=== PATIENT | male | born 1960 | race Caucasian/White ===

== ENCOUNTER → 2023-12-26 06:58 | Outpatient (REF) | payer BC, SELFPAY | LOC: MRI 06:58 | PROVIDERS: ATTENDING PHYSICIAN Physical Medicine & Rehabilitation; FAMILY PHYSICIAN Family Medicine | DX: S46.911A Strain of unspecified muscle, fascia and tendon at shoulder and upper arm level, right arm, initial encounter (principal) | CPT/HCPCS: 73221 ==

== ENCOUNTER → 2024-04-23 08:23 | Outpatient (REF) | payer BC, SELFPAY | LOC: RAD 08:23 | PROVIDERS: ATTENDING PHYSICIAN Neurological Surgery; FAMILY PHYSICIAN Family Medicine | DX: Z98.1 Arthrodesis status (principal) | CPT/HCPCS: 72100 ==

== ENCOUNTER → 2024-06-25 09:56 | Outpatient (REF) | payer BC, SELFPAY | LOC: RAD 09:56 | PROVIDERS: ATTENDING PHYSICIAN Neurological Surgery; FAMILY PHYSICIAN Family Medicine | DX: Z98.1 Arthrodesis status (principal) | CPT/HCPCS: 72110 ==

== ENCOUNTER → 2024-11-05 10:32 | Outpatient (REF) | payer BC, SELFPAY | LOC: RAD 10:32 | PROVIDERS: ATTENDING PHYSICIAN Neurological Surgery; FAMILY PHYSICIAN Family Medicine | DX: Z98.1 Arthrodesis status (principal) | CPT/HCPCS: 72114 ==

== ENCOUNTER → 2025-02-15 14:22 | Outpatient (REF) | payer OTHER, SELFPAY | LOC: HWRAD 14:22 | PROVIDERS: ATTENDING PHYSICIAN Family Medicine | DX: R10.11 Right upper quadrant pain (principal) | CPT/HCPCS: 76700 ==

== ENCOUNTER → 2025-04-10 18:03 | Outpatient (REF) | payer OTHER, SELFPAY | LOC: RAD 18:03 | PROVIDERS: ATTENDING PHYSICIAN Neurological Surgery; FAMILY PHYSICIAN Family Medicine | DX: Z98.1 Arthrodesis status (principal) | CPT/HCPCS: 72110 ==

== ENCOUNTER 2025-04-11 08:51 | Emergency (ER) | payer OTHER, SELFPAY ==
[2025-04-11 08:54] VITALS: BP 175/90
--- NOTE | 2025-04-11 11:13 | ED.GENMED ---
History of Present Illness
General
Chief Complaint: Back Pain
Time Seen by Provider: 04/11/25 10:36
History of Present Illness
History of Present Illness:
64-year-old male with history of diabetes, hyperlipidemia, asthma presenting to the emergency department for right sided back pain. Patient reports for the past several months has been having issues with his back, known history of severe spinal
stenosis and autoimmune neuropathy. He has been following with a surgeon at [place], recently had x-rays of his back. He has had 3 spinal fusions in the past. He was on the toilet prior to arrival and felt his back eval. He has since had
difficulty ambulating, notes severe pain on the right side of his back going into his gluteal region. Denies any new numbness or tingling. Denies any weakness. He did not take anything for pain prior to arrival. He notes that he usually takes
Tylenol and Motrin for pain. Denies any bowel or bladder issues. Denies any fever. Denies additional acute medical complaints
Past History
Past History
ED Past Medical History: HTN and NIDDM
ED Past Surgical History: Appendectomy, Urological and Other (Hernia repair)
Social History
Tobacco: Non-smoker
Phy Exam
Physical Exam
Physical Exam:
General: Well-appearing, no clinical signs of dehydration, nontoxic and in no acute distress
HEENT: protecting airway
Neck: appears supple
CV: Normal heart rate, regular rhythm
Resp: No accessory muscle use, no increased work of breathing
Abd: No distention
Extremities: No deformities, no swelling. Range of motion intact to the lower extremities. Distal sensation and pulses intact. Slight diminished sensation to lower extremities which patient reports is chronic, however symmetric. Reproducible
pain to the right gluteal region. No midline tenderness to the back
Neuro: alert, no focal neurologic deficit
: deferred
Rectal: deferred
Psych: Normal affect
Skin: Intact
Course
Orders/Labs/Results
Orders:
Orders
04/11/25 10:53
CT Lumbar Spine W/o Iv Contras Urgent
Reason For Exam: severe R-sided pain, hx fusions
Ketorolac [Toradol] 30 mg IV NOW STA
04/11/25 11:40
Complete Blood Count/With Diff Urgent
Comprehensive Metabolic Panel Urgent
04/11/25 11:45
Dexamethasone Sod Phosphate [Decadron] 10 mg IV NOW STA
Diazepam [Valium] 5 mg PO NOW STA
04/11/25 14:16
HYDROmorphone [Dilaudid] 0.5 mg IV NOW STA
04/11/25 15:17
Prednisone [Deltasone] 40 mg PO NOW STA
Abnormal Lab Results
04/11/25
11:40
Absolute Monos (auto) 0.7 H 10^3/uL
(0.1-0.6)
BUN 22 H mg/dl
(9-20)
Glucose 169 H mg/dl
(70-99)
04/11/25 11:40
04/11/25 11:40
Vital Signs
Initial and Last Documented VS:
Initial Vital Signs
Temp Pulse Resp BP Pulse Ox
98.3 F 85 16 175/90 98
04/11/25 08:54 04/11/25 08:54 04/11/25 08:54 04/11/25 08:54 04/11/25 08:54
Last Documented Vital Signs
Temp Pulse Resp BP Pulse Ox
98.3 F 69 16 146/74 99
04/11/25 08:54 04/11/25 14:00 04/11/25 14:00 04/11/25 14:00 04/11/25 14:00
MDM/Problems Addressed
MDM/Problems Addressed:
64-year-old male with history of severe spinal stenosis and chronic neuropathy presenting for acute on chronic back pain. Vital signs are significant for high blood pressure.
On exam, patient is in no acute distress, however does appear uncomfortable secondary to pain. Symptoms appear most consistent with sciatica versus disc herniation. Do not suspect any concerning etiology to patient's presenting symptoms. Do not
suspect any spinal fracture in the absence of any direct trauma, and no midline spinal tenderness. No fever, systemic symptoms, or midline tenderness, without concern for spinal abscess or infection. No red flag such as bowel or bladder
incontinence, focal weakness, or any sensory deficits on exam, without present concern for spinal compression. Will start with IV Toradol for pain control. X-rays obtained yesterday of the lumbar spine, show prior spinal fusions without obvious
fracture or malalignment. Given acute worsening of pain, we will proceed with CT imaging.
15:15 -CT without any significant acute abnormality. Patient's pain has improved. Offered admission for pain control versus pain control at home. He would prefer to go home to follow-up with his surgeon and outpatient MRI. Return precautions
discussed and patient verbalized understanding
*Pulse Oximetry
SaO2: 98
Oxygen Mode of Delivery: Room air
Patient hypoxic: no
*Critical Care Note
Total Time (30-74mins, 75-104mins- exclusive of procedures): Not Applicable
ED Attending Note
-
Portions of this chart may have been created with voice recognition software.� Occasional wrong word or��sound alike� substitutions may have occurred due to the inherent limitations of voice recognition software.
Discharge Plan
Departure
Patient Disposition: Home (Routine Discharge)
Date of Disposition: 04/11/25
Time of Disposition: 15:17
Patient with high blood pressure during this ER visit?: No
Condition: Good
Discharge Problem:
Acute lumbar back pain, Sciatic nerve palsy, right
Instructions: Low Back Pain (DC), Sciatica (DC)
Prescriptions:
New
prednisone 20 mg tablet
40 mg PO DAILY 5 Days Qty: 10 0RF
oxycodone-acetaminophen [Percocet] 5-325 mg tablet
1 tab PO Q8H PRN (Reason: Pain) Qty: 10 0RF
No Action
metformin 500 MG tablet
1,000 mg PO BID
omeprazole [Prilosec] 10 MG capsule,delayed release(DR/EC)
40 mg PO DAILYPRN PRN (Reason: reflux)
niacin 100 MG tablet
500 mg PO DAILY
albuterol sulfate 1 PUFF HFA aerosol inhaler
1 puff inhalation R Q4HPRN PRN (Reason: sob)
Patient Comments:
last used months ago
levothyroxine 50 MCG tablet
50 mcg PO DAILY
rosuvastatin 20 MG tablet
20 mg PO QPM
semaglutide [Ozempic] 1 MG/0.75 ML pen injector
1 mg SQ WEEKLY
vitamin B complex 1 TAB tablet
1 tab PO DAILY
cholecalciferol (vitamin D3) 2,000 UNIT tablet
2,000 unit PO DAILY
cetirizine 10 MG tablet
10 mg PO DAILYPRN PRN (Reason: allergies)
melatonin 10 MG tablet
20 mg PO HSPRN PRN (Reason: insomnia)
semaglutide [Rybelsus] 3 MG tablet
3 mg PO DAILY
sennosides [senna] 1 TABLET tablet
2 tab PO BID 0RF
docusate sodium 100 MG capsule
100 mg PO BID 0RF
oxycodone-acetaminophen [Percocet] 1 EACH tablet
0.5 - 1 tab PO Q6HPRN PRN (Reason: moderate-severe pain) Qty: 30 0RF
Rx Instructions:
1/2 tab for moderate pain, 1 tab if severe
dx lami
ongoing therapy
lorazepam 1 MG tablet
1 mg PO TIDPRN PRN (Reason: muscle spasms ) Qty: 20 0RF
Rx Instructions:
Caution with Percocet - can cause drowsiness.
Take only as needed and as directed
acetaminophen 325 MG tablet
650 mg PO Q4HPRN PRN (Reason: mild pain) Qty: 30 0RF
Rx Instructions:
Do not exceed >4000 mg daily while on Percocet.
1 Percocet tab = 325 mg of Tylenol.
phytonadione (vitamin K1) 100 MCG tablet
100 mcg PO DAILY Qty: 0 0RF
Rx Instructions:
Resume in 1 week.
docosahexaenoic acid-epa 1 CAP capsule
1 - 2 cap PO DAILY Qty: 0 0RF
Rx Instructions:
Resume in 1 week.
coenzyme Q10 50 MG tablet,chewable
100 mg PO DAILY Qty: 0 0RF
Rx Instructions:
Resume in 1 week.
Referrals:
Ozzy Mckeon MD [Family Provider, Family Practice]
Activity Restrictions/Additional Instructions:
You were seen in the emergency department for back pain
You had a CT scan of your lumbar spine which did not show any significant abnormality. We suspect possible disc herniation versus sciatica. We recommend that you follow-up with your spine doctor.
Please follow-up closely with your primary care physician.
Return to the emergency department for any worsening of your symptoms, or any development of chest pain, difficulty breathing, abdominal pain with persistent vomiting and inability to tolerate food or liquid by mouth (concern for dehydration),
weakness, headache or confusion, fever greater than 100.4, or any additional symptoms that are concerning to you.
Thank you for choosing [facility].
Interventions
Interventions:
*Risk Screen - Suicide Last Done: 04/11/25 08:55
*General Assessment Last Done: 04/11/25 11:30
*Neglect/Abuse Screening Last Done: 04/11/25 08:55
*ED- Fall Risk Assessment Last Done: 04/11/25 11:30
*ED COVID-19 Vaccine History Last Done: 04/11/25 11:30
*Nursing Disposition Last Done: 04/11/25 16:40
ED-Musculoskeletal Assessment Last Done: 04/11/25 11:30
Discharge Date and Time
Discharge Date/Time: 04/11/25 16:20
Print Language: MACEDONIAN
[2025-04-11 11:35] VITALS: BP 173/99
[2025-04-11] MEDS: TORADOL 30 MG IV (11:41)
[2025-04-11 11:53] LABS: % Basophils 0.9 % (0-2); % Eosinophils 3.2 % (0-6); % Immature Granulocytes 0.4 % (0-0.5); % Lymphocytes 23.7 % (20.5-51.1); % Monocytes 9.1 % (1.7-9.3); % Neutrophils 62.7 % (42.2-75.2); Absolute Basophils 0.1 10^3/uL (0-0.2); Absolute Eosinophils 0.3 10^3/uL (0-0.7); Absolute Lymphocytes 1.9 10^3/uL (1.2-3.4); Absolute Monocytes 0.7 10^3/uL (0.1-0.6); Hematocrit 47.6 % (39.0-52.0); Hemoglobin 16.1 g/dL (13.0-18.0); Mean Corp Hgb Conc. 33.8 g/dL (33.0-37.0); Mean Corpuscular Hgb 30.2 pg (27.0-31.0); Mean Corpuscular Volume 89.3 fL (80.0-94.0); Mean Platelet Volume 9.6 fL (7.4-10.4); Nucleated Red Blood Cells % 0 % (-); Platelet Count 256 10^3/uL (130-400); Red Blood Cell Count 5.33 10^6/uL (4.70-6.10); White Blood Cell Count 7.9 10^3/uL (4.8-10.8)
[2025-04-11] MEDS: VALIUM 5 MG PO (12:01)
[2025-04-11] MEDS: DECADRON 10 MG IV (12:01)
[2025-04-11 12:23] LABS: ALT (SGPT) 25 U/L (0-50); AST (SGOT) 24 U/L (17-59); Albumin 4.8 g/dl (3.5-5.0); Alkaline Phosphatase 59 U/L (38-126); Blood Urea Nitrogen 22 mg/dl (9-20); Calcium 10.1 mg/dl (8.4-10.2); Carbon Dioxide 27 mmol/L (22-30); Chloride 105 mmol/L (98-107); Glucose 169 mg/dl (70-99); Potassium 4.9 mmol/L (3.5-5.1); Sodium 139 mmol/L (135-145); Total Bilirubin 0.7 mg/dl (0.2-1.3); Total Protein 7.6 g/dl (6.3-8.2); eGFR > 60.00
[2025-04-11 14:00] VITALS: BP 146/74
[2025-04-11] MEDS: DILAUDID 0.5 MG IV (14:23)
[2025-04-11] MEDS: DELTASONE 40 MG PO (16:06)
== END 2025-04-11 16:20 | disposition home or self-care (01) ==
LOC: EMR 08:51
PROVIDERS: EMERGENCY PHYSICIAN Student in an Organized Health Care Education/Training Program; FAMILY PHYSICIAN Family Medicine
DX: M54.50 Low back pain, unspecified (principal); G58.8 Other specified mononeuropathies; M48.061 Spinal stenosis, lumbar region without neurogenic claudication; E11.41 Type 2 diabetes mellitus with diabetic mononeuropathy; E78.5 Hyperlipidemia, unspecified; J45.909 Unspecified asthma, uncomplicated
CPT/HCPCS: 99284; 96374; 96375 ×2; 72131; 80053; 85025